=== PATIENT | female | born 1935 | race African-American/Black ===

== ENCOUNTER 2017-03-11 00:30 | Observation (INO) | payer OTHER ==
[~2017-03-11] VITALS: Ht 165.1 cm; Wt 80.1 kg
[2017-03-11 02:11] LABS: PLATELET COUNT 247 x10^3mcL (130-400); RED CELL DISTRIBUTION WIDTH 14.1 % (11.5-14.5)
[2017-03-11 02:14] LABS: BASOPHIL % 4.8 % (0-2)
[2017-03-11 02:20] LABS: CALCIUM 9.2 mg/dL (8.5-10.1); CARBON DIOXIDE 27.9 mmol/L (21-32); CHLORIDE SERUM 106 mmol/L (98-107); CREATININE SERUM 1.4 mg/dL (0.6-1.0); GLUCOSE SERUM 90 mg/dL (74-106); POTASSIUM SERUM 3.3 mmol/L (3.5-5.1); SODIUM SERUM 141 mmol/L (136-145)
[2017-03-11 02:25] LABS: ALBUMIN 3.5 g/dL (3.4-5.0); ALKALINE PHOSPHATASE 45 U/L (46-116); ALT/SGPT 23 U/L (14-59); AST/SGOT 32 U/L (15-37); BILIRUBIN TOTAL 0.39 mg/dL (0.20-1.00); TOTAL PROTEIN, SERUM 7.6 g/dL (6.4-8.2)
[2017-03-11 02:40] LABS: CK-MB 1.3 ng/mL (0-3.6)
[2017-03-11] MEDS ORDERED: SIMVASTATIN20 M1 PO (03:05)
[2017-03-11] MEDS ORDERED: IBUPROFEN400 MG (03:05)
[2017-03-11] MEDS ORDERED: ZES10 PO (03:05)
[2017-03-11] MEDS ORDERED: HYDROCORTISONE20 MG PO (03:06)
[2017-03-11] MEDS ORDERED: LEVOTHYROXIN0.025 M2 PO (03:06)
[2017-03-11] MEDS ORDERED: CABERGOLINE0.5 MG PO (03:06)
[2017-03-11] MEDS ORDERED: LATANOPROST2.5 ML OP (03:06)
[2017-03-11] MEDS ORDERED: TIMOPTIC OCUMET10 ML (03:07)
[2017-03-11 04:10] VITALS: BP 146/86
[2017-03-11 04:38] LABS: CHOLESTEROL/HDL RATIO 3.4; MAGNESIUM 2.2 mg/dL (1.8-2.4); PHOSPHOROUS 2.9 mg/dL (2.5-4.9)
[2017-03-11 04:39] LABS: FREE T4 0.4 ng/dL (0.76-1.46)
[2017-03-11 04:41] LABS: FREE THYROXINE INDEX 0.7 ug/dL (1.4-4.5); T4(THYROXINE) 2.5 ug/dL (4.7-13.3)
[2017-03-11 04:55] LABS: T3 TOTAL 0.61 ng/mL
[2017-03-11 05:12] VITALS: BP 145/86
[2017-03-11 12:05] VITALS: Ht 165.1 cm; Wt 80.1 kg
== END 2017-03-11 20:08 | disposition home or self-care (01) | DRG 56 ==
LOC: ED 00:30 → DU 03:04
PROVIDERS: Emergency Medicine; ADMIT Family Medicine
DX: G30.9 Alzheimer's disease, unspecified (principal); N17.0 Acute kidney failure with tubular necrosis; F05 Delirium due to known physiological condition; F02.80 Dementia in other diseases classified elsewhere, unspecified severity, without behavioral disturbance, psychotic disturbance, mood disturbance, and anxiety; I16.0 Hypertensive urgency; I10 Essential (primary) hypertension; E87.6 Hypokalemia; D63.8 Anemia in other chronic diseases classified elsewhere; E03.9 Hypothyroidism, unspecified; Z85.820 Personal history of malignant melanoma of skin; Z68.29 Body mass index [BMI] 29.0-29.9, adult
CPT/HCPCS: 83880; 84439; 97110-GP; G0378; G0480; J1630; J7030

== ENCOUNTER 2017-05-21 14:26 | Inpatient (IN) | payer OTHER, MEDICAID ==
[~2017-05-21] VITALS: Ht 157.5 cm; Wt 71.0 kg
[~2017-05-21 14:26] MED LIST: CABERGOLINE0.5 MG PO; HYDROCORTISONE20 MG PO; IBUPROFEN400 MG; LATANOPROST2.5 ML OP; LEVOTHYROXIN0.025 M2 PO; SIMVASTATIN20 M1 PO; TIMOPTIC OCUMET10 ML; ZES10 PO
[2017-05-21 15:26] LABS: PLATELET COUNT 246 x10^3mcL (130-400)
[2017-05-21 15:43] LABS: BASOPHIL % 2.1 % (0-2); RED CELL DISTRIBUTION WIDTH 14.9 % (11.5-14.5)
[2017-05-21 15:46] LABS: ALKALINE PHOSPHATASE 40 U/L (46-116); ALT/SGPT 14 U/L (14-59); AMYLASE 54 U/L (25-115); AST/SGOT 17 U/L (15-37); BILIRUBIN TOTAL 0.3 mg/dL (0.20-1.00); CALCIUM 8.5 mg/dL (8.5-10.1); CARBON DIOXIDE 24.7 mmol/L (21-32); CHLORIDE SERUM 105 mmol/L (98-107); CHOLESTEROL 153 mg/dL (<200); CREATININE SERUM 1.4 mg/dL (0.6-1.0); GLUCOSE SERUM 72 mg/dL (74-106); HDL CHOLESTEROL 37 mg/dL (40-60); LIPASE 144 IU/L (73-393); MAGNESIUM 2.2 mg/dL (1.8-2.4); SODIUM SERUM 141 mmol/L (136-145); TOTAL PROTEIN, SERUM 6.6 g/dL (6.4-8.2)
[2017-05-21 15:50] LABS: ALBUMIN 3.1 g/dL (3.4-5.0); T4(THYROXINE) 2.1 ug/dL (4.7-13.3)
[2017-05-21] MEDS ORDERED: LORAZEPAM1 MG PO (15:50)
[2017-05-21] MEDS ORDERED: [UNRECOGNIZED DRUG - CODE] PO (15:52)
[2017-05-21] MEDS ORDERED: ZESTRIL10 MG PO (15:52)
[2017-05-21 15:53] LABS: POTASSIUM SERUM 2.9 mmol/L (3.5-5.1)
[2017-05-21] MEDS ORDERED: ZOCOR20 MG PO (15:53)
[2017-05-21] MEDS ORDERED: LEVOTHYROXIN0.025 M2 PO (15:53)
[2017-05-21] MEDS ORDERED: CABERGOLINE0.5 MG PO (15:55)
[2017-05-21] MEDS ORDERED: XALATAN2.5 ML OU (15:56)
[2017-05-21 17:16] LABS: microscopic required? NO
[2017-05-21 17:35] LABS: UA SPECIFIC GRAVITY >=1.030 (1.005-1.035); urine erythrocyte NEGATIVE (NEGATIVE)
[2017-05-21 17:45] LABS: AMPHETAMINE QUAL UR NONE DETECTED (NEG <=1000)
[2017-05-21 19:28] VITALS: BP 109/88
[2017-05-21 21:36] LABS: CALCIUM 8.3 mg/dL (8.5-10.1); CARBON DIOXIDE 24.4 mmol/L (21-32); CHLORIDE SERUM 107 mmol/L (98-107); CREATININE SERUM 1.2 mg/dL (0.6-1.0); POTASSIUM SERUM 3.6 mmol/L (3.5-5.1); SODIUM SERUM 142 mmol/L (136-145)
[2017-05-21 21:41] LABS: GLUCOSE SERUM 57 mg/dL (74-106)
[2017-05-22 07:20] VITALS: BP 134/76
[2017-05-22 07:39] LABS: BASOPHIL % 0.9 % (0-2); PLATELET COUNT 233 x10^3mcL (130-400); RED CELL DISTRIBUTION WIDTH 14.5 % (11.5-14.5)
[2017-05-22 07:49] LABS: CARBON DIOXIDE 24.6 mmol/L (21-32); CHLORIDE SERUM 108 mmol/L (98-107); CREATININE SERUM 1.1 mg/dL (0.6-1.0); GLUCOSE SERUM 103 mg/dL (74-106); POTASSIUM SERUM 3.4 mmol/L (3.5-5.1); SODIUM SERUM 142 mmol/L (136-145)
[2017-05-22 09:24] VITALS: BP 127/76
[2017-05-22 12:43] VITALS: BP 137/73
[2017-05-22 20:43] VITALS: BP 138/71
[2017-05-23 05:06] VITALS: BP 143/72
[2017-05-23 07:51] LABS: BASOPHIL % 0.6 % (0-2); PLATELET COUNT 254 x10^3mcL (130-400)
[2017-05-23 08:02] LABS: CALCIUM 8.2 mg/dL (8.5-10.1); CARBON DIOXIDE 23.1 mmol/L (21-32); CHLORIDE SERUM 111 mmol/L (98-107); CREATININE SERUM 0.9 mg/dL (0.6-1.0); GLUCOSE SERUM 171 mg/dL (74-106); POTASSIUM SERUM 3.6 mmol/L (3.5-5.1); SODIUM SERUM 142 mmol/L (136-145)
[2017-05-23 08:06] LABS: RED CELL DISTRIBUTION WIDTH 14.8 % (11.5-14.5)
[2017-05-23 09:14] VITALS: BP 132/74
[2017-05-23 13:10] VITALS: Ht 157.5 cm; Wt 71.0 kg
[2017-05-23 17:00] VITALS: BP 141/85
[2017-05-23 22:49] VITALS: BP 153/102
[2017-05-24 05:52] VITALS: BP 144/69
[2017-05-24 06:32] LABS: PLATELET COUNT 265 x10^3mcL (130-400)
[2017-05-24 06:47] LABS: CALCIUM 8.7 mg/dL (8.5-10.1); CARBON DIOXIDE 24.3 mmol/L (21-32); CHLORIDE SERUM 112 mmol/L (98-107); CREATININE SERUM 0.9 mg/dL (0.6-1.0); GLUCOSE SERUM 112 mg/dL (74-106); MAGNESIUM 1.8 mg/dL (1.8-2.4); PHOSPHOROUS 1.2 mg/dL (2.5-4.9); POTASSIUM SERUM 3.3 mmol/L (3.5-5.1); SODIUM SERUM 146 mmol/L (136-145)
[2017-05-24 07:05] LABS: BASOPHIL % 2.7 % (0-2)
[2017-05-24 09:26] VITALS: BP 147/89
[2017-05-24 09:35] VITALS: BP 147/89
[2017-05-24 18:34] VITALS: BP 139/79
[2017-05-24 21:49] VITALS: BP 150/83
[2017-05-25 05:38] VITALS: BP 124/62
[2017-05-25 07:00] LABS: CALCIUM 7.6 mg/dL (8.5-10.1); CARBON DIOXIDE 22.1 mmol/L (21-32); CHLORIDE SERUM 108 mmol/L (98-107); CREATININE SERUM 0.9 mg/dL (0.6-1.0); GLUCOSE SERUM 134 mg/dL (74-106); MAGNESIUM 1.5 mg/dL (1.8-2.4); PHOSPHOROUS 1.7 mg/dL (2.5-4.9); SODIUM SERUM 142 mmol/L (136-145)
[2017-05-25 07:01] LABS: BASOPHIL % 0.5 % (0-2); PLATELET COUNT 287 x10^3mcL (130-400)
[2017-05-25 07:07] LABS: RED CELL DISTRIBUTION WIDTH 14.6 % (11.5-14.5)
[2017-05-25 07:08] LABS: POTASSIUM SERUM 2.8 mmol/L (3.5-5.1)
[2017-05-25 09:43] VITALS: BP 146/78
[2017-05-25 13:30] VITALS: BP 149/85
[2017-05-25 13:48] LABS: CALCIUM 8.4 mg/dL (8.5-10.1); CARBON DIOXIDE 23.9 mmol/L (21-32); CHLORIDE SERUM 109 mmol/L (98-107); GLUCOSE SERUM 115 mg/dL (74-106); POTASSIUM SERUM 3.5 mmol/L (3.5-5.1); SODIUM SERUM 142 mmol/L (136-145)
[2017-05-25 21:49] VITALS: BP 145/78
[2017-05-26 05:28] VITALS: BP 140/86
[2017-05-26 06:44] LABS: BASOPHIL % 0.6 % (0-2); PLATELET COUNT 267 x10^3mcL (130-400)
[2017-05-26 06:59] LABS: RED CELL DISTRIBUTION WIDTH 14.7 % (11.5-14.5)
[2017-05-26 08:11] LABS: CALCIUM 7.8 mg/dL (8.5-10.1); CARBON DIOXIDE 25.8 mmol/L (21-32); CHLORIDE SERUM 107 mmol/L (98-107); GLUCOSE SERUM 112 mg/dL (74-106); MAGNESIUM 2.2 mg/dL (1.8-2.4); PHOSPHOROUS 2.1 mg/dL (2.5-4.9); SODIUM SERUM 142 mmol/L (136-145)
[2017-05-26 08:30] VITALS: BP 146/85
[2017-05-26 10:38] VITALS: BP 145/87
[2017-05-26 12:54] VITALS: BP 155/81
[2017-05-26 17:00] VITALS: BP 130/78
[2017-05-26 20:17] VITALS: BP 128/77
[2017-05-27 05:50] VITALS: BP 138/80
[2017-05-27 06:58] LABS: BASOPHIL % 0.2 % (0-2); PLATELET COUNT 227 x10^3mcL (130-400)
[2017-05-27 07:01] LABS: RED CELL DISTRIBUTION WIDTH 15.3 % (11.5-14.5)
[2017-05-27 07:41] LABS: CALCIUM 7.9 mg/dL (8.5-10.1); CARBON DIOXIDE 20.8 mmol/L (21-32); CHLORIDE SERUM 109 mmol/L (98-107); GLUCOSE SERUM 126 mg/dL (74-106); MAGNESIUM 2.1 mg/dL (1.8-2.4); PHOSPHOROUS 2.2 mg/dL (2.5-4.9); POTASSIUM SERUM 3.7 mmol/L (3.5-5.1); SODIUM SERUM 140 mmol/L (136-145)
[2017-05-27 09:19] VITALS: BP 149/81
[2017-05-27] MEDS ORDERED: BIA500 PO (13:31)
[2017-05-27] MEDS ORDERED: AMO500 PO (13:32)
[2017-05-27] MEDS ORDERED: OMEPRAZOLE40 M1 PO (13:33)
[2017-05-27 13:45] VITALS: BP 145/73
== END 2017-05-27 16:10 | DRG 270 ==
LOC: ED 14:26 → DU 17:55 → MU 17:55 → DU 19:14 → MU 05-23 12:01
PROVIDERS: Emergency Medicine; Family Medicine; Surgery
PROC: 067D3DZ Dilation of Left Common Iliac Vein with Intraluminal Device, Percutaneous Approach (ICD-10-PCS; 2017-05-25)
PROC: B51G1ZA Fluoroscopy of Left Pelvic (Iliac) Veins using Low Osmolar Contrast, Guidance (ICD-10-PCS; 2017-05-25)
PROC: 06CD3ZZ Extirpation of Matter from Left Common Iliac Vein, Percutaneous Approach (ICD-10-PCS; principal; 2017-05-25 13:00)
PROC: 0DH68UZ Insertion of Feeding Device into Stomach, Via Natural or Artificial Opening Endoscopic (ICD-10-PCS; 2017-05-26)
PROC: 0DB68ZX Excision of Stomach, Via Natural or Artificial Opening Endoscopic, Diagnostic (ICD-10-PCS; 2017-05-26)
DX: I82.422 Acute embolism and thrombosis of left iliac vein (principal); G93.41 Metabolic encephalopathy; N17.0 Acute kidney failure with tubular necrosis; F05 Delirium due to known physiological condition; E44.0 Moderate protein-calorie malnutrition; E86.0 Dehydration; B96.81 Helicobacter pylori [H. pylori] as the cause of diseases classified elsewhere; G30.9 Alzheimer's disease, unspecified; F02.80 Dementia in other diseases classified elsewhere, unspecified severity, without behavioral disturbance, psychotic disturbance, mood disturbance, and anxiety; K57.30 Diverticulosis of large intestine without perforation or abscess without bleeding; E87.6 Hypokalemia; I10 Essential (primary) hypertension; E03.9 Hypothyroidism, unspecified; M06.9 Rheumatoid arthritis, unspecified; K80.20 Calculus of gallbladder without cholecystitis without obstruction; Z68.23 Body mass index [BMI] 23.0-23.9, adult
CPT/HCPCS: 36005; 37220; 37221; 43235; 82962; 83880; 87804; 97110-GP; 97116-GP; 97530-GP; C1726; C1760; C1769; C1876; C1887; C1894; G0480; J0690; J1200; J1610; J1644; J2001; J2060; J2250; J2310; J3010; J3230; J3475; J3480; J3490; J7042; Q0092; Q9967

== ENCOUNTER 2017-08-05 13:59 | Emergency (ER) | payer OTHER, MEDICAID ==
[~2017-08-05] VITALS: Ht 167.6 cm; Wt 63.5 kg
[~2017-08-05 13:59] MED LIST changes: +AMO500 PO; +BIA500 PO; +LORAZEPAM1 MG PO; +OMEPRAZOLE40 M1 PO; +XALATAN2.5 ML OU; +ZESTRIL10 MG PO; +ZOCOR20 MG PO; +[UNRECOGNIZED DRUG - CODE] PO
[2017-08-05 14:11] VITALS: Ht 167.6 cm; Wt 63.5 kg
[2017-08-05 15:20] LABS: BASOPHIL % 0.4 % (0-2); PLATELET COUNT 230 x10^3mcL (130-400)
[2017-08-05 15:25] LABS: RED CELL DISTRIBUTION WIDTH 15.4 % (11.5-14.5)
[2017-08-05 15:40] LABS: ALKALINE PHOSPHATASE 50 U/L (46-116); ALT/SGPT 42 U/L (14-59); AST/SGOT 40 U/L (15-37); BILIRUBIN TOTAL 0.42 mg/dL (0.20-1.00); CALCIUM 9.2 mg/dL (8.5-10.1); CARBON DIOXIDE 25.9 mmol/L (21-32); CHLORIDE SERUM 102 mmol/L (98-107); CREATININE SERUM 1.1 mg/dL (0.6-1.0); GLUCOSE SERUM 130 mg/dL (74-106); POTASSIUM SERUM 3.6 mmol/L (3.5-5.1); SODIUM SERUM 139 mmol/L (136-145); TOTAL PROTEIN, SERUM 7.9 g/dL (6.4-8.2)
[2017-08-05 15:50] LABS: UA SPECIFIC GRAVITY 1.025 (1.005-1.035); microscopic required? YES; urine erythrocyte NEGATIVE (NEGATIVE)
[2017-08-05 17:24] LABS: CK-MB 1.7 ng/mL (0-3.6)
[2017-08-05 21:22] VITALS: BP 126/79
== END 2017-08-05 21:22 | disposition home or self-care (01) ==
LOC: ED 13:59
PROVIDERS: Emergency Medicine
DX: R45.1 Restlessness and agitation (principal); I10 Essential (primary) hypertension; Z90.710 Acquired absence of both cervix and uterus
CPT/HCPCS: 36415